=== PATIENT | female | born 1940 | race Caucasian/White ===

== ENCOUNTER 2021-03-22 13:59 | Emergency (ER) | payer MEDICARE, BC ==
[~2021-03-22] VITALS: Ht 154.9 cm; Wt 60.0 kg
[~2021-03-22 13:59] MED LIST: ATOR20TA PO; EST1T PO; HC A30CR2 RC; HYDR26CR2; OMEP-84 PO; SUCR1TAB PO
[2021-03-22 14:30] VITALS: BP 157/98
== END 2021-03-22 16:00 | disposition home or self-care (01) ==
LOC: ER 14:00
DX: Z20.822 Contact with and (suspected) exposure to COVID-19 (principal); R05.9 Cough, unspecified; R50.9 Fever, unspecified; E78.00 Pure hypercholesterolemia, unspecified; K21.9 Gastro-esophageal reflux disease without esophagitis; Z90.710 Acquired absence of both cervix and uterus; Z98.890 Other specified postprocedural states; Z72.89 Other problems related to lifestyle; Z79.899 Other long term (current) drug therapy
CPT/HCPCS: 87635; 99283; C9803

== ENCOUNTER 2021-03-24 08:54 | Emergency (ER) | payer MEDICARE, BC ==
[~2021-03-24] VITALS: Ht 160 cm; Wt 61.4 kg
[2021-03-24] MEDS ORDERED: acetaminophen 325mg tablet PO ONE (10:15)
[2021-03-24] MEDS ORDERED: CASIRIVIMAB/IMDEVIMAB inject. 10 ML in normal saline 100ml IV soln 100 ML IV ONE (10:40)
[2021-03-24 12:16] VITALS: BP 145/80
== END 2021-03-24 12:32 | disposition home or self-care (01) ==
LOC: ER 08:54
DX: U07.1 COVID-19 (principal); R51.9 Headache, unspecified; R53.83 Other fatigue; R05.9 Cough, unspecified; R11.0 Nausea; E78.00 Pure hypercholesterolemia, unspecified; K21.9 Gastro-esophageal reflux disease without esophagitis; Z90.710 Acquired absence of both cervix and uterus; Z98.890 Other specified postprocedural states; Z72.89 Other problems related to lifestyle; Z79.899 Other long term (current) drug therapy
CPT/HCPCS: 87635; 99284; C9803; J3490; M0243; Q0244